=== PATIENT | male | born 1960 | race Caucasian/White ===

== ENCOUNTER 2023-04-01 22:54 | Emergency (ER) | payer MEDICARE ==
[2023-04-01] MEDS ORDERED: Piperacillin/Tazobactam 3.375 GM VIAL ONE (23:15)
[2023-04-01 23:27] LABS: #Basophils 0.1 10x3/uL (0.0-0.2); #Eosinphils 0.2 10x3/uL (0.0-0.5); #Monocytes 0.4 10x3/uL (0.0-1.1); #Neutrophils 2.8 10x3/uL (1.5-8.4); %Eosinophils 2.5 % (0.0-6.0); %Lymphocytes 43.4 % (18.0-47.0); %Monocytes 6.5 % (0.0-10.0); %Neutrophils 46.3 % (40.0-75.0); Hematocrit 36.8 % (38.8-50.0); Hemoglobin 12.8 g/dL (13.5-17.5); Mean Corpuscular HGB CONC 34.8 g/dL (32.0-36.0); Mean Corpuscular Hemoglobin 31.1 pg (27.0-33.0); Mean Corpuscular Volume 89.3 fl (81.2-95.1); Mean Platelet Volume 11.2 fl (7.4-10.4); Platelet Count 192 10x3/uL (150-450); RBC Distribution Width 12.3 % (11.5-14.5); Red Blood Cell (RBC) Count 4.12 10x6/uL (4.32-5.72)
[2023-04-01 23:34] LABS: Acetaminophen Less than 10 mcg/mL (10.0-30.0); Lipase 42 U/L (8-78); Magnesium 1.9 mg/dL (1.6-2.6); Salicylate Less than 8.0 mg/dL (15.0-30.0)
[2023-04-01 23:36] LABS: ALT (SGPT) 12 U/L (8-55); AST (SGOT) 17 U/L (5-34); Albumin 4.1 g/dL (3.4-4.8); Alkaline Phosphatase 48 U/L (40-110); Anion Gap 16 mmol/L (10-20); BUN (Urea Nitrogen) 22 mg/dL (8.4-25.7); Bilirubin, Total 0.3 mg/dL (0.2-1.2); Calc. Creatinine Clearance 0 mL/min (70-130); Calcium 9.1 mg/dL (7.8-10.44); Carbon Dioxide 23 mmol/L (23-31); Chloride 101 mmol/L (98-107); Estimated GFR 45; Globulin 2.7 g/dL (2.4-3.5); Glucose 147 mg/dL (80-115); Potassium 3.9 mmol/L (3.5-5.1); Protein, Total 6.8 g/dL (5.8-8.1); Sodium 136 mmol/L (136-145)
[2023-04-01 23:41] LABS: Troponin I Less than 0.010 ng/mL (< 0.028)
[2023-04-02 00:04] LABS: Bilirubin Neg (Negative); Blood, Urine Negative (Negative); Clarity Clear (Clear); Glucose, Urine (Dipstick) Normal (Negative); Ketone, Urine Negative (Negative); Leukocyte Negative (Negative); Nitrite Negative (Negative); Protein, Urine (Dipstick) 30 mg/dl (Neg-Trace); Urobilinogen Normal mg/dL (Less than 2)
[2023-04-02 00:13] LABS: Bacteria/HPF None Seen HPF (None Seen); CAUTI Indications for Culture Alt mental st,lethar; RBC/HPF None Seen HPF (0-3); WBC/HPF 0-3 HPF (0-3)
[2023-04-02 00:14] LABS: Amphetamine Not Detected (NotDetected); Barbiturates Screen Not Detected (NotDetected); Benzodiazepine Screen Not Detected (NotDetected); Cocaine Metabolite Screen Not Detected (NotDetected); Methadone Not Detected (NotDetected); Methamphetamine Not Detected (NotDetected); Opiate Screen Detected (NotDetected); Oxycodone Screen Not Detected (NotDetected); Phencyclidine (PCP) Not Detected (NotDetected); THC/Cannabinoid Screen Not Detected (NotDetected); Tricyclic Screen Not Detected (NotDetected); Urine Culture Reflex No No
[2023-04-02] MEDS ORDERED: Vancomycin 1 GM VIAL ONE (00:16)
[2023-04-02 00:45] LABS: SARS-CoV-2 NAA Rapid Test Not Detected (NotDetected)
[2023-04-02] MEDS ORDERED: Midazolam HCl 2 mg/2 ml Vial ONE ×2 (00:58→01:13)
[2023-04-02] MEDS ORDERED: NOREPINEPHRINE 8 MG/250 ML-D5W 250 ML ONE (00:58)
[2023-04-02 02:07] LABS: Lactic Acid 1.6 mmol/L (0.5-2.2)
== END 2023-04-02 03:57 | disposition short-term general hospital (02) ==
LOC: CSHERS 22:54
DX: A41.9 Sepsis, unspecified organism (principal); R65.21 Severe sepsis with septic shock; J18.9 Pneumonia, unspecified organism; E86.0 Dehydration; K21.9 Gastro-esophageal reflux disease without esophagitis; I10 Essential (primary) hypertension; Z79.899 Other long term (current) drug therapy; Z20.822 Contact with and (suspected) exposure to COVID-19
CPT/HCPCS: 36415; 71045; 80053; 80306; 80307; 81001; 83605; 83690; 83735; 83880; 84443; 84484; 85025; 85379; 87040; 87086; 93005; 93010; J2250; J2543; J3370

== ENCOUNTER 2024-06-06 13:20 | Inpatient (IN) | payer MEDICARE ==
[2024-06-06] MEDS ORDERED: Ondansetron ODT 4 MG TAB PO PRN (17:12)
[2024-06-06] MEDS ORDERED: Ondansetron PF 4 MG/2 ML Vial IVP PRN (17:12)
[2024-06-06] MEDS ORDERED: Acetaminophen 650 MG Suppository PR PRN (17:12)
[2024-06-06] MEDS: Acetaminophen 325 MG TAB PO SCH (17:49)
[2024-06-06] MEDS: Morphine 4 MG/ML VIAL SLOW IVP SCH (17:49)
[2024-06-06 17:51] VITALS: BMI 29.1
[2024-06-06] MEDS: NS 0.9% w/ 20 MEQ KCL 1,000 ML/1,000 ML BAG IV SCH (18:50)
[2024-06-06] MEDS: Ciprofloxacin Lactate/D5W 400 MG in Premix 1 BAG IVPB SCH (21:02)
[2024-06-06] MEDS: traZODone HCl 50 MG TAB PO SCH (21:02)
[2024-06-06] MEDS: Gabapentin 300 MG CAP PO SCH (21:03)
[2024-06-06] MEDS: Morphine 2 MG/ML VIAL SLOW IVP SCH (22:13)
[2024-06-06] MEDS: metroNIDAZOLE 500 MG in Premix 1 BAG IVPB SCH (22:14)
[2024-06-07] MEDS: HYDROcodone/Acetaminophen 10/325 mg Tablet PO PRN (00:19)
[2024-06-07 04:29] LABS: #Basophils 0.06 10x3/uL (0.0-0.2); #Eosinophils 0.24 10x3/uL (0.0-0.5); #Neutrophils 2.87 10x3/uL (1.5-8.4); %Eosinophils 4.1 % (0.0-6.0); %Lymphocytes 39.1 % (18.0-47.0); %Monocytes 6.8 % (0.0-10.0); %Neutrophils 48.5 % (40.0-75.0); Hematocrit 40.1 % (38.8-50.0); Hemoglobin 13.6 g/dL (13.5-17.5); Mean Corpuscular HGB CONC 33.9 g/dL (32.0-36.0); Mean Corpuscular Hemoglobin 29.5 pg (27.0-33.0); Mean Platelet Volume 10.8 fL (7.4-10.4); Platelet Count 133 10x3/uL (150-450); Red Blood Cell (RBC) Count 4.61 10x6/uL (4.32-5.72)
[2024-06-07 04:33] LABS: Anion Gap 16 mmol/L (10-20); BUN (Urea Nitrogen) 14 mg/dL (8.4-25.7); Calc. Creatinine Clearance 120 mL/min (70-130); Calcium 9.5 mg/dL (7.8-10.44); Carbon Dioxide 24 mmol/L (23-31); Chloride 107 mmol/L (98-107); Estimated GFR 96; Glucose 79 mg/dL (80-115); Potassium 4.1 mmol/L (3.5-5.1); Sodium 143 mmol/L (136-145)
[2024-06-07] MEDS: Multivitamin W/ Minerals 1 TAB PO SCH (08:26)
[2024-06-08 08:22] VITALS: BP 144/81; TEMP 98.2
[2024-06-08 15:03] LABS: Campy jejuni + coli by PCR Negative (Negative); STEC Shiga Toxin 1+2 Negative (Negative); Salmonella spp. by PCR Negative (Negative); Shigella spp + EIEC by PCR Negative (Negative)
== END 2024-06-08 11:15 | disposition home or self-care (01) | DRG 392 ==
LOC: CSHTELE 15:56 → OBSVTOIN 06-07 08:51
PROVIDERS: ADMIT Family Medicine; ATTEND Internal Medicine
DX: K52.9 Noninfective gastroenteritis and colitis, unspecified (principal); I10 Essential (primary) hypertension; E78.5 Hyperlipidemia, unspecified; K21.9 Gastro-esophageal reflux disease without esophagitis; Z96.611 Presence of right artificial shoulder joint; Z96.612 Presence of left artificial shoulder joint; G89.29 Other chronic pain; M54.9 Dorsalgia, unspecified; Z87.891 Personal history of nicotine dependence
CPT/HCPCS: 36415; 80048; 85025; 87324; 87449; 87505; 94760; 94762; 96365; 96375; 96376; G0378; J0744; J2272; J3480